=== PATIENT | female | born 1990 | race Two or more races ===

== ENCOUNTER 2018-02-14 08:33 | Outpatient (CLI) | payer OTHER ==
[~2018-02-14] VITALS: Ht 162.6 cm; Wt 69.5 kg
[2018-02-14 09:09] VITALS: BP 117/75
[2018-02-14 09:16] LABS: MICROSCOPIC INDICATED
[2018-02-14] MEDS ORDERED: DOXY1TAB3 PO (09:43)
[2018-02-14] MEDS ORDERED: PREN1TAB10 PO (09:44)
== END 2018-02-14 11:51 | disposition home or self-care (01) ==
LOC: LDOP 08:33
PROVIDERS: ATTEND Obstetrics & Gynecology Maternal & Fetal Medicine
DX: O46.93 Antepartum hemorrhage, unspecified, third trimester (principal); Z3A.38 38 weeks gestation of pregnancy
CPT/HCPCS: 59025; 81001; 87086; 99201; G0463

== ENCOUNTER 2018-02-26 12:23 | Inpatient (IN) | payer OTHER ==
[~2018-02-26] VITALS: Ht 162.6 cm; Wt 70.0 kg
[~2018-02-26 12:23] MED LIST: DOXY1TAB3 PO; PREN1TAB10 PO
[2018-03-01] MEDS ORDERED: OXYTOCIN 30U/ 0.9% NaCL 500ML 500 ML IV ONE (12:17)
[2018-03-01] MEDS ORDERED: OXYTOCIN 30U/ 0.9% NaCL 500ML 500 ML IV PRN (12:17)
[2018-03-01] MEDS: D5%-LACTATED RINGERS 1,000 ML IV SCH ×2 (12:17→20:17)
[2018-03-01] MEDS: LACTATED RINGERS 1,000 ML IV SCH ×2 (12:29→14:22)
[2018-03-01] MEDS ORDERED: FENTANYL PF 100 MCG/2ML IVPush PRN (12:30)
[2018-03-01] MEDS ORDERED: FENTANYL PF 100 MCG/2ML IV PRN (12:30)
[2018-03-01] MEDS ORDERED: ONDANSETRON 2MG/ML, 2ML IVPush PRN (12:30)
[2018-03-01 12:31] VITALS: BP 111/62
[2018-03-01] MEDS ORDERED: DIPH50CA62 PO (12:37)
[2018-03-01 12:42] LABS: BASOPHILS # (AUTO) 0.02 x10^3/uL (0-0.1); BASOPHILS % (AUTO) 0 % (0-1); EOSINOPHILS # (AUTO) 0.01 x10^3/uL (0-0.4); EOSINOPHILS % (AUTO) 0 % (1-7); LYMPHOCYTES # (AUTO) 1.85 x10^3/uL (1-3.4); LYMPHOCYTES % (AUTO) 32 % (22-44); MD NO; MEAN CORPUSCULAR HEMOGLOBIN 31.4 pg (27.0-34.8); MEAN CORPUSCULAR HGB CONC 34.1 g/dL (32.4-35.8); MEAN CORPUSCULAR VOLUME 92.1 fL (80-100); MEAN PLATELET VOLUME 10.1 fL (7.4-10.4); MONOCYTES # (AUTO) 0.46 x10^3/uL (0.2-0.8); MONOCYTES % (AUTO) 8 % (2-9); NEUTROPHILS % (AUTO) 59 % (42-75); PLATELET COUNT 168 x10^3/uL (130-400); RED BLOOD COUNT 4.25 x10^6/uL (3.82-5.3); RED CELL DISTRIBUTION WIDTH 13.3 % (9.6-15.2)
[2018-03-01] MEDS ORDERED: NEWBORN KIT ONE ×2 (13:03→13:52)
[2018-03-01] MEDS ORDERED: FENTANYL/BUPIV./NS/PF 250 ML EPIDCONT SCH ×2 (14:37)
[2018-03-01] MEDS ORDERED: LACTATED RINGERS 1,000 ML IV SCH ×2 (14:37)
[2018-03-01] MEDS ORDERED: BUPIVACAINE 0.25% ONE (14:40)
[2018-03-01] MEDS ORDERED: FENTANYL/BUPIV./NS/PF 250 ML EPIDCONT ONE (14:40)
[2018-03-01] MEDS ORDERED: LACTATED RINGERS 1,000 ML IVBOLUS PRN ×2 (15:00)
[2018-03-01] MEDS ORDERED: EPHEDRINE 50 MG/ML, 1ML IVPush PRN ×2 (15:00)
[2018-03-01] MEDS ORDERED: NALOXONE 0.4 MG/ML, 1ML IVPush PRN ×2 (15:00)
[2018-03-01] MEDS ORDERED: MISOPROSTOL 200 MCG TABLET ONE (15:37)
[2018-03-01] MEDS ORDERED: OXYTOCIN 30U/ 0.9% NaCL 500ML 500 ML ONE (15:37)
[2018-03-01] MEDS ORDERED: LIDOCAINE 1%, 20ML ONE (15:37)
[2018-03-01] MEDS ORDERED: ONDANSETRON 2MG/ML, 2ML ONE (21:19)
[2018-03-02] MEDS: OXYTOCIN 30U/ 0.9% NaCL 500ML 500 ML IV SCH ×2 (02:13→12:13)
[2018-03-02] MEDS ORDERED: MISOPROSTOL 200 MCG TABLET PR PRN (02:30)
[2018-03-02] MEDS ORDERED: METHYLERGONOVINE 0.2 MG/ML IM PRN (02:30)
[2018-03-02] MEDS ORDERED: ACETAMINOPHEN 325 MG TABLET PO PRN (02:30)
[2018-03-02] MEDS ORDERED: DIPH,PERTUSS(ACELL),TET VAC/PF NC IM-VACC PRN (02:30)
[2018-03-02] MEDS ORDERED: CARBOPROST TROMETHAMINE 250 MCG/ML, 1ML IM PRN (02:30)
[2018-03-02] MEDS ORDERED: MEASLES,MUMPS&RUBELLA VACC/PF 0.5 ML SQ PRN (02:30)
[2018-03-02] MEDS ORDERED: OXYcodone/APAP 5/325MG TABLET PO PRN ×2 (02:30)
[2018-03-02] MEDS ORDERED: RHOGAM FROM BLOOD BANK 1 NOTE EA IM/IV ONE (02:30)
[2018-03-02] MEDS ORDERED: OXYTOCIN 30U/ 0.9% NaCL 500ML 500 ML ONE (03:03)
[2018-03-02 04:00] VITALS: BP 95/63
[2018-03-02] MEDS: D5%-LACTATED RINGERS 1,000 ML IV SCH ×2 (04:17→12:17)
[2018-03-02] MEDS: LACTATED RINGERS 1,000 ML IV SCH ×2 (04:17→12:17)
[2018-03-02] MEDS: IBUPROFEN 600 MG TABLET PO PRN ×3 (04:47→20:45)
[2018-03-02 08:00] VITALS: BP 130/85
[2018-03-02] MEDS: PRENATAL VIT/IRON/FA 1 EACH TABLET PO SCH (09:15)
[2018-03-02] MEDS: DOCUSATE 100 MG CAPSULE PO PRN ×2 (09:15→20:45)
[2018-03-02 10:37] LABS: BASOPHILS # (AUTO) 0.03 x10^3/uL (0-0.1); BASOPHILS % (AUTO) 0 % (0-1); EOSINOPHILS % (AUTO) 0 % (1-7); LYMPHOCYTES % (AUTO) 14 % (22-44); MD SCAN; MEAN CORPUSCULAR HEMOGLOBIN 32.1 pg (27.0-34.8); MEAN CORPUSCULAR HGB CONC 34.8 g/dL (32.4-35.8); MEAN CORPUSCULAR VOLUME 92.1 fL (80-100); MEAN PLATELET VOLUME 10.3 fL (7.4-10.4); MONOCYTES # (AUTO) 0.64 x10^3/uL (0.2-0.8); MONOCYTES % (AUTO) 7 % (2-9); NEUTROPHILS # (AUTO) 7.77 x10^3/uL (1.8-6.8); NEUTROPHILS % (AUTO) 79 % (42-75); PLATELET COUNT 136 x10^3/uL (130-400); RED BLOOD COUNT 3.16 x10^6/uL (3.82-5.3)
[2018-03-02 12:01] VITALS: BP 114/75
[2018-03-02 17:06] VITALS: BP 115/68
[2018-03-02 20:46] VITALS: BP 99/64
[2018-03-03] MEDS ORDERED: IBUP-1222 PO (08:00)
[2018-03-03 09:00] VITALS: BP 94/62
[2018-03-03] MEDS: PRENATAL VIT/IRON/FA 1 EACH TABLET PO SCH (09:00)
== END 2018-03-03 11:50 | disposition home or self-care (01) | DRG 806 ==
LOC: LDIP 03-01 12:15 → 2NW 03-02 03:45
PROVIDERS: ADMIT Obstetrics & Gynecology Maternal & Fetal Medicine; ATTEND Obstetrics & Gynecology Maternal & Fetal Medicine
PROC: 10E0XZZ Delivery of Products of Conception, External Approach (ICD-10-PCS; principal; 2018-03-01)
PROC: 3E033VJ Introduction of Other Hormone into Peripheral Vein, Percutaneous Approach (ICD-10-PCS; 2018-03-01)
PROC: 10907ZC Drainage of Amniotic Fluid, Therapeutic from Products of Conception, Via Natural or Artificial Opening (ICD-10-PCS; 2018-03-01)
PROC: 3E0R3BZ Introduction of Anesthetic Agent into Spinal Canal, Percutaneous Approach (ICD-10-PCS; 2018-03-01)
PROC: 00HU33Z Insertion of Infusion Device into Spinal Canal, Percutaneous Approach (ICD-10-PCS; 2018-03-01)
PROC: 0UQGXZZ Repair Vagina, External Approach (ICD-10-PCS; 2018-03-01)
DX: O66.0 Obstructed labor due to shoulder dystocia (principal); O71.4 Obstetric high vaginal laceration alone; Z37.0 Single live birth; O43.123 Velamentous insertion of umbilical cord, third trimester; Z3A.40 40 weeks gestation of pregnancy
CPT/HCPCS: 36415; 85025; 86850; 86900; G0378; J2405; J3490; J2590; J3010; J7120